=== PATIENT | female | born 1965 | race Caucasian/White ===

== ENCOUNTER 2018-09-16 05:38 | Inpatient (IN) | payer OTHER ==
[2018-09-16 07:28] LABS: MEAN CORPUSCULAR HEMOGLOBIN 28.1 pg (28.0-34.0)
[2018-09-16 07:29] LABS: BASOPHILS % 0.4 (0.0-1.5); EOSINOPHILS % 1.8 % (0.0-6.8); MONOCYTES % 3.4 % (0.0-11.0); NEUTROPHILS # 5.3 # k/uL (1.4-7.7)
[2018-09-16 07:39] LABS: eGFR (Non-African) > 60
[2018-09-16] MEDS ORDERED: ONDANSETRON HCL/PF 4 MG/ 2ML VIAL ONE (08:48)
[2018-09-16] MEDS ORDERED: DEXAMETHASONE SOD PHOS 4 MG/ML VIAL ONE (08:48)
[2018-09-16] MEDS ORDERED: SEVOFLURANE 250 ML LIQUID IH ONE (08:48)
[2018-09-16] MEDS ORDERED: PROPOFOL 200 MG/20 ML VIAL IV ONE (08:48)
[2018-09-16] MEDS ORDERED: LIDOCAINE HCL/PF 2% 100 MG/5 ML VIAL IJ ONE (08:48)
[2018-09-16] MEDS ORDERED: ceFAZolin SODIUM 1 GM VIAL ONE (08:48)
[2018-09-16] MEDS ORDERED: SCOPOLAMINE HYDROBROMIDE 1.5MG/72HR PATCH TD ONE (08:48)
[2018-09-16] MEDS ORDERED: SUGAMMADEX 200 mg/2mL 200 MG/2 ML VIAL IV ONE (08:48)
[2018-09-16] MEDS ORDERED: MIDAZOLAM HCL 2 MG/2 ML VIAL ONE (08:48)
[2018-09-16] MEDS ORDERED: LACTATED RINGERS 1,000 ML IV.SOLN IV ONE (08:48)
[2018-09-16] MEDS ORDERED: FAMOTIDINE/PF 20 MG/2 ML VIAL ONE (08:48)
[2018-09-16] MEDS ORDERED: ROCURONIUM BROMIDE 10 MG/ML 5ML VIAL ONE (08:48)
[2018-09-16] MEDS ORDERED: GLYCOPYRROLATE 0.2 MG/1 ML 1 ML ONE (08:48)
[2018-09-16] MEDS ORDERED: ePHEDrine SULFATE 50 MG/1 ML IVP ONE (08:48)
[2018-09-16] MEDS ORDERED: 0.9 % SODIUM CHLORIDE 1,000 ML IV ONE (12:40)
[2018-09-16 12:45] VITALS: BMI 45.7
--- NOTE | 2018-09-16 12:46 | History and Physical Report ---
History of Present Illnes - History of Present Illness Reason for Visit: Gastric sleeve placement History of Present Illness: Luanne is a 53 year old female who has battled obesity for the past 10 years. She has tried multiple diets in the past as well as various exercise programs inculding swimming and walking, but has not been able to take of any significant amount of weight. Her current BMI is 38.0. - Past Medical History Cardiac: HTN, Hyperlipidemia Gastrointestinal: Constipation, GERD, Peptic ulcer disease Psych: Anxiety, Depression, Other (OCD) Musculoskeletal: Osteoarthritis Endocrine: Diabetes, obesity Grav: 4 Para: 4 ( x 3, LTCS x 1 (last)) Ab: 0 - Past Surgical History Past Surgical History: Cholecystectomy, , Hysterectomy, Tonsillectomy (and adenoidectomy) - Past Social History Smoke: No Alcohol: Rare Drugs: None Lives: With Family Domestic Violence: Negative - Health Maintenance Health Maintenance: Cholesterol Influenza Vaccine: Current for this Influenza Season Pneumonia Vaccine: Yes - Unable to Obtain History Unable to Obtain: No Review of Systems - Review of Systems Constitutional: negative: Fever, Chills Eyes: negative: pain ENT: negative: Ear Pain, Ear Discharge Respiratory: negative: Cough Cardiovascular: negative: Chest Pain Gastrointestinal: Nausea, Vomiting Genitourinary: negative: Dysuria, Frequency Musculoskeletal: negative: Neck Pain Skin: negative: Rash Neurological: negative: Weakness, Change in Speech, Confusion - Medications/Allergies Allergies/Adverse Reactions: Allergies Allergy/AdvReac Type Severity Reaction Status Date / Time No Known Drug Allergies Allergy Verified 09/16/18 13:07 Exam - Exam General: Alert, Oriented to Person, Oriented to Place, Oriented to Time, Other (Sleepy, but alert and oriented. She has some nausea, but denies much pain.) HEENT: Atraumatic, PERRLA, EOMI, Nose Mucous membr. moist/[place], Poor Dentition Neck: No: Stridor, Rigidity Lungs: Clear to auscultation, Normal air movement, Speaks full Sentences. No: Respiratory Distress, Wheezes Cardiovascular: Regular rate, Normal S1, Normal S2 Murmur: No: Systolic Murmur Abdomen: Normal bowel sounds, Soft, Other (Minimal tenderness) Genitourinary: No: Other Male Genitourinary: No: Other Female Genitourinary: No: Other Integumentary: Normal, [place], Warm, Dry Extremities: No clubbing, No cyanosis, No edema Neurological: Normal speech Psych/Mental Status: Mental status NL - Laboratory Results Laboratory Results: Laboratory Results 09/16/18 09/16/18 09/16/18 06:40 06:40 06:40 WBC 8.90 RBC 4.81 Hgb 13.5 Hct 41.6 MCV 86.0 MCH 28.1 MCHC 32.5 RDW 13.1 Plt Count 242 Neut % (Auto) 59.7 Lymph % (Auto) 34.7 [place] % (Auto) 3.4 Eos % (Auto) 1.8 Baso % (Auto) 0.4 Neut # (Auto) 5.3 Lymph # (Auto) 3.1 [place] # (Auto) 0.3 Eos # (Auto) 0.2 Baso # (Auto) 0.0 PT 11.5 INR 1.10 Sodium 143 Potassium 3.9 Chloride 104 Carbon Dioxide 27 BUN 8 Creatinine 0.70 Est GFR ( Amer) > 60 Est GFR (Non-Af Amer) > 60 Glucose 120 H Calcium 9.0 Total Bilirubin 0.6 AST 35 ALT 43 Alkaline Phosphatase 132 H Total Protein 7.0 Albumin 4.0 Assessment/Plan - Assessment/Plan (1) Morbid obesity Status: Acute Current Visit: Yes Assessment: Now s/p Gastric sleeve Plan: Ambulate Routine postoperative care Check CBC/CMP in am (2) Hypertension Status: Acute Current Visit: Yes Assessment: Currently well controlled Plan: Continue lisinopril (3) GERD (gastroesophageal reflux disease) Status: Acute Current Visit: Yes Assessment: Chronic Plan: Start Pepcid (4) PUD (peptic ulcer disease) Status: Acute Current Visit: Yes Assessment: Pepcid as ordered (5) Diabetes mellitus Status: Acute Current Visit: Yes Qualifiers: Diabetes mellitus type: type 2 Diabetes mellitus senior care insulin use: without senior care use Diabetes mellitus complication status: without complication Qualified Code(s): E11.9 - Type 2 diabetes mellitus without complications Assessment: Continue metformin ACHS Accuchecks (6) Anxiety Status: Acute Current Visit: Yes Assessment: Stable, patient has stopped her buspirone on her own (7) OCD (obsessive compulsive disorder) Status: Acute Current Visit: Yes Assessment: Stable (8) Depression Status: Acute Current Visit: Yes Qualifiers: Depression Type: major depressive disorder Major depression recurrence: recurrent Active/Remission status: in full remission Qualified Code(s): F33.42 - Major depressive disorder, recurrent, in full remission Assessment: Continue Lexapro at 20 mg po qd VTE Assessment - RISK FACTOR SCORE VTE RISK FACTOR SCORES: AGE 40-60 YEARS, OBESITY, ANTICIPATED BED CONFINEMENT OR IMMOBILIZATION > 24 HOURS (On Lovenox 40 mg sc BID)
[2018-09-16] MEDS ORDERED: HYDROCODONE/ACETAMINOPHEN 15 ML SOLUTION PO PRN ×2 (13:09)
[2018-09-16] MEDS ORDERED: LEVALBUTEROL HCL 1.25 MG/3 ML AMPUL.NEB NEB PRN (13:09)
[2018-09-16] MEDS ORDERED: 0.9 % SODIUM CHLORIDE 50 ML IV ONE ×2 (13:35→19:59)
[2018-09-16] MEDS ORDERED: 0.9 % SODIUM CHLORIDE 0 ML IV ONE (13:35)
[2018-09-16] MEDS: FAMOTIDINE/PF 20 MG/2 ML VIAL IVP SCH ×2 (13:50→20:21)
[2018-09-16] MEDS ORDERED: ceFAZolin SODIUM 1 GM VIAL IV SCH (16:00)
[2018-09-16] MEDS: 0.9 % SODIUM CHLORIDE 1,000 ML IV SCH ×2 (16:07→20:23)
[2018-09-16] MEDS: HYDROmorphone HCL 2 MG TABLET PO PRN ×2 (16:20→20:22)
[2018-09-16] MEDS ORDERED: CEFAZOLIN SODIUM/DEXTROSE,ISO 1 GM/50 ML PIGGYBACK IV SCH (17:00)
[2018-09-16] MEDS: ATORVASTATIN CALCIUM 10 MG TABLET PO SCH (20:22)
[2018-09-16] MEDS: ENOXAPARIN SODIUM 40 MG/0.4 ML DISP.SYRIN SQ SCH (20:23)
[2018-09-16] MEDS ORDERED: ATORVASTATIN CALCIUM 80 MG TABLET PO SCH (21:00)
[2018-09-17] MEDS: HYDROmorphone HCL 2 MG TABLET PO PRN ×4 (01:00→21:34)
[2018-09-17] MEDS ORDERED: ceFAZolin SODIUM 1 GM VIAL ONE (01:52)
[2018-09-17] MEDS: ONDANSETRON HCL/PF 4 MG/ 2ML VIAL IVP PRN ×3 (04:28→21:40)
[2018-09-17] MEDS: 0.9 % SODIUM CHLORIDE 1,000 ML IV SCH ×3 (04:28→17:14)
[2018-09-17] MEDS ORDERED: ACETAMINOPHEN ORAL SOLUTION 325 MG/10.15 ML CUP PO PRN (06:09)
[2018-09-17] MEDS ORDERED: PROMETHAZINE HCL 25 MG in 0.9 % SODIUM CHLORIDE 50 ML IV PRN (06:10)
[2018-09-17] MEDS ORDERED: PROMETHAZINE HCL 25 MG/ML VIAL ONE (06:23)
[2018-09-17] MEDS ORDERED: 0.9 % SODIUM CHLORIDE 50 ML IV ONE ×2 (06:24→08:55)
[2018-09-17 08:05] LABS: MEAN CORPUSCULAR HEMOGLOBIN 28.9 pg (28.0-34.0)
[2018-09-17 08:06] LABS: BASOPHILS % 0.4 (0.0-1.5); EOSINOPHILS % 0.9 % (0.0-6.8); MONOCYTES % 4.7 % (0.0-11.0); NEUTROPHILS # 13.3 # k/uL (1.4-7.7)
[2018-09-17 08:25] LABS: eGFR (Non-African) > 60
--- NOTE | 2018-09-17 08:33 | Inpatient Progress Note ---
Subjective - Required Recertification Statement I anticipate X number of days because-include discharge plan: 1 - Review of Systems Events since last encounter: Kim has a low grade fever this morning. Her blood pressure is well controlled. She has an expected leukocytosis postoperatively. She has been ambulating well. She has not been vomiting, but is nauseated. General: Denies: Chills HEENT: Denies: Head Aches Pulmonary: Denies: Dyspnea, Cough Cardiovascular: Denies: Chest Pain Gastrointestinal: Nausea. Denies: Vomiting Genitourinary: Denies: Dysuria Musculoskeletal: Denies: Neck Pain Neurological: Denies: Weakness, Change in Speech Objective - Exam Vitals and I&O: Vital Signs Temp 101.5 F H 09/17/18 06:00 Pulse 72 09/17/18 06:00 Resp 20 09/17/18 06:00 BP 109/60 09/17/18 06:00 Pulse Ox 94 09/17/18 06:00 Intake & Output 09/16/18 09/16/18 09/17/18 11:59 23:59 11:59 Intake Total 1430 2620 Output Total 350 600 Balance 1080 2019 Weight 113.398 kg Intake: IV 1200 2400 left hand 1200 2400 Oral 230 220 Output: Urine 350 600 Other: Voiding Method Toilet Toilet # Voids 1 1 General: Alert, Oriented to Person, Oriented to Place, Oriented to Time, Mild distress HEENT: Atraumatic, PERRLA, EOMI, Mouth Mucous membr. moist/[place] Neck: Supple, No JVD Lungs: Clear to auscultation Cardiovascular: Regular rate, Normal S1, Normal S2 Abdomen: Normal bowel sounds, Other (Incisions are dry and dressed) Extremities: No clubbing, No cyanosis, No edema Skin: Normal, [place], Warm, Dry Neurological: Normal gait. No: Generalized Weakness Psych/Mental Status: Mental status NL, Mood NL, Appropriate Affect - Results Results: Laboratory Results WBC 16.50 K/ul (4.00-12.00) H 09/17/18 06:00 RBC 3.97 M/ul (3.90-5.20) 09/17/18 06:00 Hgb 11.5 g/dL (12.0-16.0) L 09/17/18 06:00 Hct 34.4 % (34.5-46.5) L 09/17/18 06:00 MCV 87.0 fl (80.0-100.0) 09/17/18 06:00 MCH 28.9 pg (28.0-34.0) 09/17/18 06:00 MCHC 33.4 g/dL (30.0-36.0) 09/17/18 06:00 RDW 13.2 % (11.3-14.3) 09/17/18 06:00 Plt Count 214 K/mm3 (130-400) 09/17/18 06:00 Neut % (Auto) 80.4 % (39.0-79.0) H 09/17/18 06:00 Lymph % (Auto) 13.6 % (16.0-50.0) L 09/17/18 06:00 [place] % (Auto) 4.7 % (0.0-11.0) 09/17/18 06:00 Eos % (Auto) 0.9 % (0.0-6.8) 09/17/18 06:00 Baso % (Auto) 0.4 (0.0-1.5) 09/17/18 06:00 Neut # (Auto) 13.3 # k/uL (1.4-7.7) H 09/17/18 06:00 Lymph # (Auto) 2.2 # k/uL (0.6-4.0) 09/17/18 06:00 [place] # (Auto) 0.8 # k/uL (0.0-0.9) 09/17/18 06:00 Eos # (Auto) 0.2 # k/uL (0.0-0.6) 09/17/18 06:00 Baso # (Auto) 0.1 # k/uL (0.0-0.5) 09/17/18 06:00 PT 11.5 Seconds (9.4-11.6) 09/16/18 06:40 INR 1.10 (0.9-1.2) 09/16/18 06:40 Sodium 142 mmol/L (136-145) 09/17/18 07:25 Potassium 3.9 mmol/L (3.5-5.1) 09/17/18 07:25 Chloride 106 mmol/L (98-107) 09/17/18 07:25 Carbon Dioxide 26 mmol/L (22-30) 09/17/18 07:25 BUN 9 mg/dL (7-17) 09/17/18 07:25 Creatinine 0.70 mg/dL (0.52-1.04) 09/17/18 07:25 Estimated Creat Clear 191 09/17/18 07:25 Est GFR ( Amer) > 60 (60-) 09/17/18 07:25 Est GFR (Non-Af Amer) > 60 (60-) 09/17/18 07:25 Glucose 112 mg/dL (74-106) H 09/17/18 07:25 Calcium 8.6 mg/dL (8.4-10.2) 09/17/18 07:25 Total Bilirubin 0.6 mg/dL (0.2-1.3) 09/16/18 06:40 AST 35 U/L (15-46) 09/16/18 06:40 ALT 43 U/L (13-69) 09/16/18 06:40 Alkaline Phosphatase 132 U/L (38-126) H 09/16/18 06:40 Total Protein 7.0 g/dL (6.3-8.2) 09/16/18 06:40 Albumin 4.0 g/dL (3.5-5.0) 09/16/18 06:40 Assessment/Plan - Assessment/Plan (1) Morbid obesity Status: Acute Current Visit: Yes Assessment: S/P Gastric sleeve (2) Hypertension Status: Acute Current Visit: Yes Assessment: Well controlled Plan: Continue current medications (3) GERD (gastroesophageal reflux disease) Status: Acute Current Visit: Yes Assessment: Continue famotidine (4) PUD (peptic ulcer disease) Status: Acute Current Visit: Yes Assessment: Continue PPI (5) Diabetes mellitus Status: Acute Current Visit: Yes Qualifiers: Diabetes mellitus type: type 2 Diabetes mellitus care home insulin use: without hat braider use Diabetes mellitus complication status: without complication Qualified Code(s): E11.9 - Type 2 diabetes mellitus without complications Assessment: Blood sugars are in the 110's (6) Anxiety Status: Acute Current Visit: Yes (7) OCD (obsessive compulsive disorder) Status: Acute Current Visit: Yes Assessment: Stable (8) Depression Status: Acute Current Visit: Yes Qualifiers: Depression Type: major depressive disorder Major depression recurrence: recurrent Active/Remission status: in full remission Qualified Code(s): F33.42 - Major depressive disorder, recurrent, in full remission Assessment: Continue Shruthi
[2018-09-17] MEDS ORDERED: Non-Formulary 1 EACH PO SCH (09:00)
[2018-09-17] MEDS: FAMOTIDINE/PF 20 MG/2 ML VIAL IVP SCH ×2 (09:00→21:34)
[2018-09-17] MEDS: ESCITALOPRAM OXALATE 10 MG TABLET PO SCH (09:00)
[2018-09-17] MEDS: ENOXAPARIN SODIUM 40 MG/0.4 ML DISP.SYRIN SQ SCH ×2 (09:00→21:36)
[2018-09-17] MEDS: LISINOPRIL 5 MG TABLET PO SCH (09:01)
[2018-09-17] MEDS: ATORVASTATIN CALCIUM 10 MG TABLET PO SCH (21:35)
[2018-09-18] MEDS: 0.9 % SODIUM CHLORIDE 1,000 ML IV SCH ×3 (00:10→07:09)
--- NOTE | 2018-09-18 07:50 | Discharge Summary ---
Discharge Summary - Discharge Sumary Allergies/Adverse Reactions: Allergies Allergy/AdvReac Type Severity Reaction Status Date / Time No Known Drug Allergies Allergy Verified 09/16/18 13:07 Patient Problems: Current Active Problems Problem Status Onset Anxiety Acute Depression Acute Diabetes mellitus Acute GERD (gastroesophageal reflux disease) Acute Hypertension Acute Morbid obesity Acute OCD (obsessive compulsive disorder) Acute PUD (peptic ulcer disease) Acute
[2018-09-18] MEDS ORDERED: 0.9 % SODIUM CHLORIDE 50 ML IV ONE (09:17)
[2018-09-18 09:26] VITALS: BP 130/68
[2018-09-18] MEDS: LISINOPRIL 5 MG TABLET PO SCH (09:28)
[2018-09-18] MEDS: ESCITALOPRAM OXALATE 10 MG TABLET PO SCH (09:29)
[2018-09-18] MEDS: FAMOTIDINE/PF 20 MG/2 ML VIAL IVP SCH (09:29)
[2018-09-18] MEDS: ENOXAPARIN SODIUM 40 MG/0.4 ML DISP.SYRIN SQ SCH (09:33)
== END 2018-09-18 11:40 | disposition home or self-care (01) | DRG 641 ==
LOC: OPSURG 05:38 → SOUTH 12:15
PROVIDERS: ADMIT Family Medicine; ATTEND Family Medicine
DX: E66.01 Morbid (severe) obesity due to excess calories (principal)
CPT/HCPCS: 80048; 80053; 85025; 85610; 99231; 99232; 99238; J0690; J1100; J1650; J2001; J2250; J2405; J2550; J2704; J3490; S0028; A9270-GY; J7030; J7120

== ENCOUNTER 2018-09-16 05:43 | Day surgery (SDC) | payer OTHER ==
[2018-09-16] MEDS ORDERED: FAMOTIDINE/PF 20 MG/2 ML VIAL ONE (08:48)
[2018-09-16] MEDS ORDERED: ePHEDrine SULFATE 50 MG/1 ML IVP ONE (08:48)
[2018-09-16] MEDS ORDERED: SCOPOLAMINE HYDROBROMIDE 1.5MG/72HR PATCH TD ONE (08:48)
[2018-09-16] MEDS ORDERED: SUGAMMADEX 200 mg/2mL 200 MG/2 ML VIAL IV ONE (08:48)
[2018-09-16] MEDS ORDERED: FENTANYL 250MCG/5ML VIAL ONE (08:48)
[2018-09-16] MEDS ORDERED: MIDAZOLAM HCL 2 MG/2 ML VIAL ONE (08:48)
[2018-09-16] MEDS ORDERED: LIDOCAINE HCL/PF 2% 100 MG/5 ML VIAL IJ ONE (08:48)
[2018-09-16] MEDS ORDERED: ceFAZolin SODIUM 1 GM VIAL ONE (08:48)
[2018-09-16] MEDS ORDERED: ONDANSETRON HCL/PF 4 MG/ 2ML VIAL ONE (08:48)
[2018-09-16] MEDS ORDERED: ROCURONIUM BROMIDE 10 MG/ML 5ML VIAL ONE (08:48)
[2018-09-16] MEDS ORDERED: GLYCOPYRROLATE 0.2 MG/1 ML 1 ML ONE (08:48)
[2018-09-16] MEDS ORDERED: LACTATED RINGERS 1,000 ML IV.SOLN IV ONE (08:48)
[2018-09-16] MEDS ORDERED: DEXAMETHASONE SOD PHOS 4 MG/ML VIAL ONE (08:48)
[2018-09-16] MEDS ORDERED: SEVOFLURANE 250 ML LIQUID IH ONE (08:48)
[2018-09-16] MEDS ORDERED: PROPOFOL 200 MG/20 ML VIAL IV ONE (08:48)
== END 2018-09-16 05:44 ==
LOC: OPSURG 05:43
PROVIDERS: ATTEND Surgery
DX: E66.01 Morbid (severe) obesity due to excess calories (principal); Z68.42 Body mass index [BMI] 45.0-49.9, adult; E11.9 Type 2 diabetes mellitus without complications; I10 Essential (primary) hypertension; K21.9 Gastro-esophageal reflux disease without esophagitis; E78.5 Hyperlipidemia, unspecified; F32.9 Major depressive disorder, single episode, unspecified; F41.9 Anxiety disorder, unspecified; M54.5 Low back pain; K59.04 Chronic idiopathic constipation
CPT/HCPCS: J0690; J1100; J2001; J2250; J2405; J2704; J3490; S0028; 43775; A9270-GY; J7120